=== PATIENT | female | born 1950 ===

== ENCOUNTER → 2018-08-06 22:59 | Outpatient (ROUT) | payer MEDICARE, OTHER, SELFPAY ==
[2018-08-06 23:56] LABS: Erythrocyte Sedimentation Rate 31 MM/HR (0-20)
[2018-08-07 02:15] LABS: Thyroid Stimulating Hormone 2.72 uIU/mL (0.47-4.68)
== END ==
PROVIDERS: Visit Provider Family Medicine
DX: R53.83 Other fatigue (principal)
CPT/HCPCS: 36415; 84443; 85651

== ENCOUNTER → 2018-08-08 20:58 | Outpatient (ROUT) | payer MEDICARE, OTHER, SELFPAY ==
[2018-08-08 23:00] LABS: Rheumatoid Factor < 8.6 IU/mL (<12.0)
[2018-08-11 18:16] LABS: ANA Screen, IFA Negative (Negative)
[2018-08-12 12:42] LABS: DNA (DS) Antibody 1 IU/mL (< 5)
[2018-08-16 12:20] LABS: Anti-DNA SS IgG 48
== END ==
PROVIDERS: Visit Provider Family Medicine
DX: R70.0 Elevated erythrocyte sedimentation rate (principal)
CPT/HCPCS: 36415; 86038; 86225; 86226; 86430